=== PATIENT | male | born 1945 | race Caucasian/White ===

== ENCOUNTER 2024-03-03 18:38 | Emergency (ER) | payer MEDICARE ==
[~2024-03-03] VITALS: Ht 177.8 cm; Wt 67.7 kg
[~2024-03-03 18:38] MED LIST: EZET10TA48 PO; FLO0.4C PO; GABA-530 PO; LEVO75TA7 PO; MYCO360T3 PO; NOR5T PO; TACR1CAP PO
[2024-03-03 18:46] VITALS: BP 146/118; PULSE 86; TEMP 98.3; O2SAT 98
[2024-03-03 19:10] LABS: BASOPHILS % (AUTO) 0.5 % (0-1); EOSINOPHILS # (AUTO) 0.5 X10'3 (0-0.9); HEMATOCRIT 40.5 % (42.0-52.0); HEMOGLOBIN 13.2 g/dl (14.0-17.9); LYMPHOCYTES % (AUTO) 17.5 % (21-51); MEAN CORPUSCULAR HEMOGLOBIN 30.1 PG (27.0-31.0); MEAN CORPUSCULAR HGB CONC 32.5 g/dL (33.0-36.5); MEAN CORPUSCULAR VOLUME 92.9 FL (78-98); MEAN PLATELET VOLUME 8.1 FL (7.4-10.4); MONOCYTES # (AUTO) 0.6 X10'3 (0-0.9); MONOCYTES % (AUTO) 11.3 % (2-12); NEUTROPHILS # (AUTO) 3.5 X10'3 (1.8-7.7); NEUTROPHILS % (AUTO) 61.7 % (42-75); PLATELET COUNT 214 X10'3 (140-440); RED BLOOD COUNT 4.36 X10'6 (4.70-6.10); RED CELL DISTRIBUTION WIDTH 13.6 % (11.5-14.5); WHITE BLOOD COUNT 5.6 X10'3 (4.5-11.0)
[2024-03-03] MEDS: normal saline 1000ML IV soln IVB ONE (19:12)
[2024-03-03 19:13] LABS: PROTHROMBIN TIME 10.7 SECONDS (9.0-12.0)
[2024-03-03 19:23] LABS: ALBUMIN 3.7 G/DL (3.4-5.0); ANION GAP 7 (8-16); BLOOD UREA NITROGEN 17 MG/DL (7-18); BUN/CREATININE RATIO 13.2 (10.0-20.0); CALCIUM 9.1 MG/DL (8.5-10.1); CHLORIDE 106 MMOL/L (99-107); CREATININE 1.29 MG/DL (0.60-1.10); GLUCOSE 147 MG/DL (70-104); MAGNESIUM 1.7 MG/DL (1.5-2.4); POTASSIUM 4.4 MMOL/L (3.5-5.1); PRO BRAIN NATRIURETIC PEPTIDE 326 PG/ML (0-450); SODIUM 140 MMOL/L (135-145); eCRCL 44 ML/MIN; eGFR 54 ML/MIN
[2024-03-03 19:30] VITALS: RESP 16
[2024-03-03 19:36] LABS: APTT 26 SECONDS (22-32)
[2024-03-03] MEDS: normal saline 1000ml 1,000 ML IV ONE (19:43)
[2024-03-03 20:46] LABS: BILIRUBIN,URINE NEGATIVE (Neg); CLARITY,URINE CLEAR (Clear); COLOR,URINE YELLOW (Yellow); GLUCOSE, URINE NEGATIVE (Neg); KETONES,URINE NEGATIVE (Neg); LEUKOCYTE ESTERASE ,URINE NEGATIVE (Neg); NITRITES, URINE NEGATIVE (Neg); OCCULT BLOOD,URINE NEGATIVE (Neg); PH,URINE 6.5 (4.8-8.0); PROTEIN,URINE NEGATIVE (Neg); UROBILINOGEN,URINE 0.2 E.U/dL (0.2-1.0)
[2024-03-03 20:53] LABS: UA COLLECTION TYPE CLN CATCH MIDSTREAM
== END 2024-03-03 21:24 | disposition home or self-care (01) ==
LOC: ER 18:38
DX: R00.1 Bradycardia, unspecified (principal); R55 Syncope and collapse; R06.02 Shortness of breath; I10 Essential (primary) hypertension
CPT/HCPCS: 36415; 71045; 80048; 81003; 83735; 83880; 84484; 85025; 85610; 85730; 87502; 87503; 87811; 93005; 99285; A6258; J7030